=== PATIENT | male | born 1945 | race Caucasian/White ===

== ENCOUNTER → 2016-08-11 | Outpatient (CLI) | payer MEDICARE, MEDICAID ==
[~2016-08-11] MED LIST: ACTOS 15MG TAB15 MG PO; AMOXICILLIN 8751 TAB PO; ASPIRIN 81M81 MG/TA2 PO; ATIVAN 1MG T1 MG/TAB PO; COLACE 100100 MG/CAP PO; FLOMAX 0.40.4 MG/CAP PO; FOLIC ACID 11 MG/TA1 PO; HUMALOG PEN100 U/ML SC; HUMALOG100 U/ML SC; HYGROTON25 MG PO; INSLANT SC; INSULIN HUMA100 U/ML SQ; IRON TABLETS325 MG PO; LANTUS100 U/ML SC; LASIX 20MG TABL20 MG PO; LEVEMIR100 U/ML SQ; LIPITOR20 MG PO; LOPRESSOR100 MG PO; MUCINEX 60600 MG/TA1 PO; NORCO 325 MG-51 TAB PO; NORVASC 10MG10 MG PO; ONGLYZA2.5 MG PO; PEPCID 20MG TAB20 MG PO; PLAVIX 75MG TAB75 MG PO; PRINIVIL5 MG PO; RENA-VITE RX1 TAB PO; RENA-VITE1 TAB PO; RENAL MULTIVITA1 TAB PO; ROBITUSSIN COLD PO; TOPROL XL 25MG25 MG PO; TRADJENTA5 MG PO; TYLENOL 500MG500 MG PO; TYLENOL EXTRA500 M1 PO; VALTREX 50500 MG/TAB PO; VALTREX1 GM PO; VASOTEC 2.2.5 MG/TAB PO; VICTOZA6 MG/ML SC; VIRT-CAPS PO; VITAMIN B COMPL1 T16 PO; VITAMIN C500 MG PO; VITAMIN D1000 IU PO; VTAMINC250TA PO; VYTORIN 10 MG-11 TAB PO; XELODA500 MG PO; [UNRECOGNIZED DRUG - OTHER] OP
[2016-08-11 17:19] LABS: MEAN CELL VOLUME 87 fl (80.0-100.0); MEAN CORPUSCULAR HGB CONC 32 g/dl (33.0-37.0); MEAN PLATELET VOLUME 10.7 fl (7.4-10.4); PLATELET COUNT 179 K/mm3 (130-400); RED BLOOD COUNT 3.36 M/mm3 (4.20-5.60); REDCELL DISTRIBUTION WIDTH-CV 14.7 % (11.5-14.5); WHITE BLOOD COUNT 7.1 K/mm3 (4.8-10.8)
[2016-08-11 17:37] LABS: ADJUSTED CALCIUM 9.3 mg/dL (8.4-10.2); ALANINE AMINOTRANSFERASE 35 U/L (21-72); ALBUMIN 3.8 gm/dL (3.5-5.0); ALKALINE PHOSPHATASE 147 U/L (50-136); ANION GAP 11 mmol/L (7-16); BILIRUBIN,TOTAL 0.9 mg/dL (0.0-1.0); BLOOD UREA NITROGEN 39 mg/dL (9-20); CALCIUM 9.1 mg/dL (8.4-10.2); CARBON DIOXIDE 33 mmol/L (22-30); CHLORIDE 97 mmol/L (98-107); GLUCOSE 169 mg/dL (74-106); POTASSIUM 4.2 mmol/L (3.4-5.0); SODIUM 142 mmol/L (137-145); TOTAL PROTEIN 6.6 gm/dL (6.4-8.2)
[2016-08-11 17:44] LABS: ERYTHROCYTE SEDIMENTATION RATE 34 mm/hr (0-30)
[2016-08-11 17:45] LABS: HEMATOCRIT 29.2 % (42.0-52.0); HEMOGLOBIN 9.3 g/dl (13.5-18.0); MEAN CORPUSCULAR HEMOGLOBIN 28 pg (27.0-31.0)
[2016-08-11 17:48] LABS: B-TYPE NATRIURETIC PEPTIDE 14900 pg/mL (0-125)
[2016-08-11 17:54] LABS: CREATININE, serum 6.25 mg/dL (0.66-1.25); TROPONIN-I < 0.012 ng/mL (0.000-0.034)
== END ==
LOC: COL.LAB 16:42 → COL.RAD 16:42
PROVIDERS: Internal Medicine Interventional Cardiology
DX: R09.89 Other specified symptoms and signs involving the circulatory and respiratory systems (principal); R06.02 Shortness of breath; Z95.1 Presence of aortocoronary bypass graft

== ENCOUNTER 2016-09-19 21:09 | Emergency (ER) | payer MEDICARE, MEDICAID ==
[~2016-09-19] VITALS: Ht 167.6 cm; Wt 72.0 kg
[~2016-09-19 21:09] MED LIST changes: -LOPRESSOR100 MG PO; -VIRT-CAPS PO
[2016-09-19 21:15] VITALS: TEMP 98.2
[2016-09-19] MEDS ORDERED: PLAVIX 75MG TAB75 MG PO (22:28)
[2016-09-19] MEDS ORDERED: ASPIRIN 81M81 MG/TA2 PO (22:30)
[2016-09-19] MEDS ORDERED: VIRT-CAPS PO (22:30)
[2016-09-19] MEDS ORDERED: LOPRESSOR100 MG PO (22:31)
[2016-09-19 23:18] LABS: BASO # 0.1 (0.0-0.2); BASO % 1.1 % (0.0-2.0); EOS # 0.3 (0.0-0.7); EOS % 4.1 % (0-4.0); GRAN # 4.4 (1.4-6.5); GRAN % 62.6 % (42.2-75.2); LYMPH # 1.7 (1.2-3.4); LYMPH % 23.5 % (20.0-51.0); MEAN CELL VOLUME 89 fl (80.0-100.0); MEAN CORPUSCULAR HGB CONC 32 g/dl (33.0-37.0); MEAN PLATELET VOLUME 11.6 fl (7.4-10.4); MONO # 0.6 (0.1-0.6); MONO % 8.4 % (1.7-9.3); PLATELET COUNT 136 K/mm3 (130-400); RED BLOOD COUNT 3.09 M/mm3 (4.20-5.60); REDCELL DISTRIBUTION WIDTH-CV 15.3 % (11.5-14.5); WHITE BLOOD COUNT 7.1 K/mm3 (4.8-10.8)
[2016-09-19 23:28] LABS: HEMATOCRIT 27.6 % (42.0-52.0); HEMOGLOBIN 8.9 g/dl (13.5-18.0); MEAN CORPUSCULAR HEMOGLOBIN 29 pg (27.0-31.0)
[2016-09-19 23:30] LABS: ADJUSTED CALCIUM 8.6 mg/dL (8.4-10.2); ALBUMIN 3.7 gm/dL (3.5-5.0); BILIRUBIN,TOTAL 0.7 mg/dL (0.0-1.0); CALCIUM 8.4 mg/dL (8.4-10.2); TOTAL PROTEIN 6.2 gm/dL (6.4-8.2)
[2016-09-19 23:38] LABS: CREATININE, serum 10.5 mg/dL (0.66-1.25); POTASSIUM 6.9 mmol/L (3.4-5.0)
[2016-09-20 00:50] VITALS: BP 178/70; PULSE 45
== END 2016-09-20 01:00 | disposition short-term general hospital (02) ==
LOC: COL.ER 21:09
PROVIDERS: Emergency Medicine
DX: E11.22 Type 2 diabetes mellitus with diabetic chronic kidney disease (principal); N18.6 End stage renal disease; Z99.2 Dependence on renal dialysis; Z79.4 Long term (current) use of insulin; E87.5 Hyperkalemia; Z79.82 Long term (current) use of aspirin
CPT/HCPCS: J1815

== ENCOUNTER → 2016-09-19 | Outpatient (CLI) | payer MEDICARE, MEDICAID ==
[2016-09-19 19:13] LABS: MEAN CELL VOLUME 88 fl (80.0-100.0); MEAN CORPUSCULAR HGB CONC 32 g/dl (33.0-37.0); MEAN PLATELET VOLUME 11.3 fl (7.4-10.4); PLATELET COUNT 147 K/mm3 (130-400); RED BLOOD COUNT 3.19 M/mm3 (4.20-5.60); REDCELL DISTRIBUTION WIDTH-CV 15.2 % (11.5-14.5)
[2016-09-19 19:14] LABS: HEMATOCRIT 28.2 % (42.0-52.0); HEMOGLOBIN 9.1 g/dl (13.5-18.0); MEAN CORPUSCULAR HEMOGLOBIN 29 pg (27.0-31.0)
[2016-09-19 19:24] LABS: CALCIUM 8.7 mg/dL (8.4-10.2)
[2016-09-19 19:37] LABS: CREATININE, serum 10.14 mg/dL (0.66-1.25); POTASSIUM 7.3 mmol/L (3.4-5.0)
== END ==
LOC: COL.LAB 18:53
PROVIDERS: Internal Medicine Interventional Cardiology
DX: I70.213 Atherosclerosis of native arteries of extremities with intermittent claudication, bilateral legs (principal)

== ENCOUNTER 2017-05-12 10:49 | Emergency (ER) | payer MEDICARE ==
[~2017-05-12] VITALS: Ht 165.1 cm; Wt 70.5 kg
[~2017-05-12 10:49] MED LIST changes: +LOPRESSOR100 MG PO; +VIRT-CAPS PO
[2017-05-12 10:55] VITALS: TEMP 98.5
[2017-05-12 11:54] LABS: COLLECTION METHOD CLEAN CATCH
[2017-05-12 12:01] LABS: BASO # 0.1 (0.0-0.2); BASO % 0.8 % (0.0-2.0); EOS # 0.4 (0.0-0.7); EOS % 4.8 % (0-4.0); GRAN # 5.1 (1.4-6.5); LYMPH # 1.5 (1.2-3.4); LYMPH % 18.8 % (20.0-51.0); MEAN CELL VOLUME 87 fl (80.0-100.0); MEAN CORPUSCULAR HGB CONC 32 g/dl (33.0-37.0); MEAN PLATELET VOLUME 11.9 fl (7.4-10.4); MONO # 0.8 (0.1-0.6); MONO % 10.3 % (1.7-9.3); PLATELET COUNT 131 K/mm3 (130-400); RED BLOOD COUNT 3.89 M/mm3 (4.20-5.60); REDCELL DISTRIBUTION WIDTH-CV 15.6 % (11.5-14.5)
[2017-05-12 12:11] LABS: PH 8 (5-8); SQUAMOUS EPITHELIAL None Seen /hpf; URINE APPEARANCE Clear; URINE BACTERIA None Seen /hpf; URINE BILIRUBIN Negative (NEGATIVE); URINE BLOOD 1+ (NEGATIVE); URINE COLOR Yellow; URINE GLUCOSE 2+ (NEGATIVE); URINE KETONE Negative (NEGATIVE); URINE LEUKOCYTE ESTERASE Negative (NEGATIVE); URINE NITRATE Negative (NEGATIVE); URINE PROTEIN(semi-quant) 3+ (NEGATIVE); URINE UROBILINOGEN Negative (NEGATIVE)
[2017-05-12 12:12] LABS: HEMATOCRIT 33.8 % (42.0-52.0); HEMOGLOBIN 10.7 g/dl (13.5-18.0); MEAN CORPUSCULAR HEMOGLOBIN 28 pg (27.0-31.0)
[2017-05-12 12:17] LABS: ALBUMIN 4.4 gm/dL (3.5-5.0); BILIRUBIN,TOTAL 1.1 mg/dL (0.0-1.0); C-REACTIVE PROTEIN 0.6 mg/dL (0.0-0.9); TOTAL PROTEIN 7.3 gm/dL (6.4-8.2)
[2017-05-12 12:19] LABS: CREATININE, serum 4.23 mg/dL (0.66-1.25)
[2017-05-12 12:52] LABS: MAGNESIUM 2.2 mg/dL (1.6-2.3)
[2017-05-12] MEDS ORDERED: FLOMAX 0.40.4 MG/CAP PO (13:28)
[2017-05-12] MEDS ORDERED: BYSTOLIC20 MG PO (13:28)
[2017-05-12] MEDS ORDERED: IMDUR 30MG30 MG/TAB PO (13:29)
[2017-05-12] MEDS ORDERED: NORCO 325 MG-51 TAB PO (13:58)
[2017-05-12] MEDS ORDERED: CIPRO 500MG TA500 MG PO (13:58)
[2017-05-12 14:24] VITALS: BP 168/68; PULSE 52
== END 2017-05-12 14:26 | disposition home or self-care (01) ==
LOC: COL.ER 10:49
PROVIDERS: Emergency Medicine
DX: N45.1 Epididymitis (principal); E11.9 Type 2 diabetes mellitus without complications; I12.9 Hypertensive chronic kidney disease with stage 1 through stage 4 chronic kidney disease, or unspecified chronic kidney disease; N18.9 Chronic kidney disease, unspecified; Z95.5 Presence of coronary angioplasty implant and graft; Z87.19 Personal history of other diseases of the digestive system; Z85.038 Personal history of other malignant neoplasm of large intestine; Z79.4 Long term (current) use of insulin; Z79.82 Long term (current) use of aspirin
CPT/HCPCS: J1170; J2405

== ENCOUNTER 2017-06-20 09:57 | Day surgery (SDC) | payer MEDICARE, MEDICAID ==
[~2017-06-20] VITALS: Ht 162.6 cm; Wt 70.6 kg
[~2017-06-20 09:57] MED LIST changes: +BYSTOLIC20 MG PO; +CIPRO 500MG TA500 MG PO; +IMDUR 30MG30 MG/TAB PO
[2017-06-20] MEDS ORDERED: PHOS LO PO (10:46)
[2017-06-20 10:47] VITALS: BP 177/69; PULSE 47; TEMP 97.6
[2017-06-20] MEDS ORDERED: PROTONIX 40MG T40 MG PO (12:32)
[2017-06-20 12:50] VITALS: BP 144/59; PULSE 48; TEMP 97.6
[2017-06-20 13:05] VITALS: BP 156/62; PULSE 48
[2017-06-20 13:20] VITALS: BP 156/55; PULSE 47
== END 2017-06-20 13:45 | disposition home or self-care (01) ==
LOC: SDCO 09:57
DX: Z85.038 Personal history of other malignant neoplasm of large intestine (principal); Z80.0 Family history of malignant neoplasm of digestive organs; D12.5 Benign neoplasm of sigmoid colon; K57.30 Diverticulosis of large intestine without perforation or abscess without bleeding; D12.2 Benign neoplasm of ascending colon; K21.9 Gastro-esophageal reflux disease without esophagitis; K29.30 Chronic superficial gastritis without bleeding; R10.31 Right lower quadrant pain; I25.2 Old myocardial infarction; I13.10 Hypertensive heart and chronic kidney disease without heart failure, with stage 1 through stage 4 chronic kidney disease, or unspecified chronic kidney disease; E11.22 Type 2 diabetes mellitus with diabetic chronic kidney disease; N18.9 Chronic kidney disease, unspecified; I25.10 Atherosclerotic heart disease of native coronary artery without angina pectoris; Z95.1 Presence of aortocoronary bypass graft; Z79.4 Long term (current) use of insulin; Z99.2 Dependence on renal dialysis; E78.00 Pure hypercholesterolemia, unspecified
CPT/HCPCS: OP; J0171; J2704; J7030

== ENCOUNTER 2017-10-23 17:35 | Emergency (ER) | payer MEDICARE, MEDICAID ==
[~2017-10-23] VITALS: Ht 167.6 cm; Wt 72.0 kg
[~2017-10-23 17:35] MED LIST changes: +PHOS LO PO; +PROTONIX 40MG T40 MG PO
[2017-10-23 17:46] VITALS: TEMP 99.1
[2017-10-23 18:39] LABS: BASO # 0.1 (0.0-0.2); EOS # 0.3 (0.0-0.7); EOS % 4.7 % (0-4.0); GRAN # 3.5 (1.4-6.5); GRAN % 60.2 % (42.2-75.2); LYMPH # 1.4 (1.2-3.4); LYMPH % 23.5 % (20.0-51.0); MEAN CELL VOLUME 89 fl (80.0-100.0); MEAN CORPUSCULAR HGB CONC 34 g/dl (33.0-37.0); MEAN PLATELET VOLUME 11.4 fl (7.4-10.4); MONO # 0.6 (0.1-0.6); MONO % 10.4 % (1.7-9.3); PLATELET COUNT 140 K/mm3 (130-400); RED BLOOD COUNT 3.05 M/mm3 (4.20-5.60); REDCELL DISTRIBUTION WIDTH-CV 14.6 % (11.5-14.5)
[2017-10-23 18:47] LABS: HEMOGLOBIN 9.1 g/dl (13.5-18.0); MEAN CORPUSCULAR HEMOGLOBIN 30 pg (27.0-31.0)
[2017-10-23 19:06] LABS: ALBUMIN 3.6 gm/dL (3.5-5.0); BILIRUBIN,TOTAL 0.8 mg/dL (0.0-1.0); POTASSIUM 4.6 mmol/L (3.4-5.0); TOTAL PROTEIN 6.5 gm/dL (6.4-8.2)
[2017-10-23 19:18] LABS: TROPONIN-I 0.016 ng/mL (0.000-0.034)
[2017-10-23 19:19] LABS: CREATININE, serum 5.31 mg/dL (0.66-1.25)
[2017-10-23 22:06] VITALS: BP 122/53; PULSE 52
== END 2017-10-23 22:17 | disposition home or self-care (01) ==
LOC: COL.ER 17:35
PROVIDERS: Emergency Medicine
DX: R42 Dizziness and giddiness (principal); R06.02 Shortness of breath; E86.9 Volume depletion, unspecified; I25.10 Atherosclerotic heart disease of native coronary artery without angina pectoris; I12.0 Hypertensive chronic kidney disease with stage 5 chronic kidney disease or end stage renal disease; E11.22 Type 2 diabetes mellitus with diabetic chronic kidney disease; N18.6 End stage renal disease; E78.5 Hyperlipidemia, unspecified; Z99.2 Dependence on renal dialysis; Z95.1 Presence of aortocoronary bypass graft; Z79.82 Long term (current) use of aspirin; Z79.4 Long term (current) use of insulin
CPT/HCPCS: J7050

== ENCOUNTER → 2018-04-04 | Outpatient (CLI) | payer MEDICARE, MEDICAID | LOC: COL.RAD 08:00 | DX: E04.1 Nontoxic single thyroid nodule (principal); Z85.038 Personal history of other malignant neoplasm of large intestine ==

== ENCOUNTER → 2018-04-17 | Outpatient (CLI) | payer MEDICARE, MEDICAID ==
[~2018-04-17] VITALS: Ht 165.1 cm; Wt 72.6 kg
[~2018-04-17] MED LIST changes: +PLETAL50 MG PO
[2018-04-17 08:33] VITALS: BP 173/74; PULSE 58
[2018-04-17 09:40] VITALS: BP 184/79; PULSE 57
--- NOTE | 2018-04-17 09:49 | NUR ---
copy of discharge instructions given to pt. Daughter previously read the instructions to her father and he verbalized understanding.
--- NOTE | 2018-04-17 09:53 | NUR ---
pt reports pain at 5/10, encouraged pt to take tylenol on returning home.
--- NOTE | 2018-04-17 09:57 | NUR ---
Pt out to car per ambulation. No change in pain. Family with pt. Bandaid to site clean dry and intact.
== END ==
LOC: COL.RAD 08:15
DX: C18.5 Malignant neoplasm of splenic flexure (principal); E04.1 Nontoxic single thyroid nodule

== ENCOUNTER → 2018-08-28 | Outpatient (CLI) | payer OTHER | LOC: COL.RAD 09:00 → COL.VAS 10:35 → COL.RAD 09-04 12:15 | DX: Z01.818 Encounter for other preprocedural examination (principal); N18.6 End stage renal disease; I70.203 Unspecified atherosclerosis of native arteries of extremities, bilateral legs ==

== ENCOUNTER → 2018-09-04 | Outpatient (CLI) | payer OTHER | LOC: COL.RAD 12:07 | DX: Z01.818 Encounter for other preprocedural examination (principal); N18.6 End stage renal disease; I65.23 Occlusion and stenosis of bilateral carotid arteries; I70.209 Unspecified atherosclerosis of native arteries of extremities, unspecified extremity ==

== ENCOUNTER → 2018-09-25 | Outpatient (CLI) | payer MEDICARE, MEDICAID | LOC: COL.RAD 09:34 | DX: N43.2 Other hydrocele (principal); N50.89 Other specified disorders of the male genital organs ==

== ENCOUNTER → 2019-01-17 | Outpatient (CLI) | payer MEDICARE, MEDICAID | LOC: COL.RAD 12:30 | DX: Z01.818 Encounter for other preprocedural examination (principal); N18.6 End stage renal disease; Z95.1 Presence of aortocoronary bypass graft ==

== ENCOUNTER → 2019-05-08 | Outpatient (CLI) | payer MEDICARE, MEDICAID ==
[2019-05-08 11:40] LABS: MEAN CELL VOLUME 90 fl (80.0-100.0); MEAN CORPUSCULAR HEMOGLOBIN 30 pg (27.0-31.0); MEAN CORPUSCULAR HGB CONC 33 g/dl (33.0-37.0); MEAN PLATELET VOLUME 10.8 fl (7.4-10.4); PLATELET COUNT 206 K/mm3 (130-400); RED BLOOD COUNT 3.68 M/mm3 (4.20-5.60); REDCELL DISTRIBUTION WIDTH-CV 12.9 % (11.5-14.5)
[2019-05-08 11:41] LABS: HEMATOCRIT 33.2 % (42.0-52.0)
[2019-05-08 11:48] LABS: CALCIUM 8.8 mg/dL (8.4-10.2); CREATININE, serum 4.09 (0.66-1.25); POTASSIUM 4.1 mmol/L (3.4-5.0)
== END ==
LOC: COL.LAB 10:32
PROVIDERS: Registered Nurse
DX: Z01.89 Encounter for other specified special examinations (principal)

== ENCOUNTER → 2019-06-11 | Outpatient (CLI) | payer MEDICARE, MEDICAID | LOC: COL.RAD 10:12 | DX: Z01.818 Encounter for other preprocedural examination (principal); N18.6 End stage renal disease; I73.9 Peripheral vascular disease, unspecified; K80.20 Calculus of gallbladder without cholecystitis without obstruction; N32.89 Other specified disorders of bladder; N40.0 Benign prostatic hyperplasia without lower urinary tract symptoms ==

== ENCOUNTER → 2020-03-23 | Outpatient (CLI) | payer MEDICARE | LOC: ZCOL.LAB 17:57 | DX: Z01.812 Encounter for preprocedural laboratory examination (principal); B34.9 Viral infection, unspecified; Z20.828 Contact with and (suspected) exposure to other viral communicable diseases ==

== ENCOUNTER → 2020-06-18 | Outpatient (CLI) | payer MEDICARE | LOC: COL.RAD | DX: R91.1 Solitary pulmonary nodule (principal); N18.6 End stage renal disease; Z01.812 Encounter for preprocedural laboratory examination ==

== ENCOUNTER → 2020-10-13 | Outpatient (CLI) | payer MEDICARE, MEDICAID | LOC: COL.LAB 12:04 → COL.RAD 12:20 | DX: R07.9 Chest pain, unspecified (principal); Z95.1 Presence of aortocoronary bypass graft ==

== ENCOUNTER 2021-03-22 13:03 | Day surgery (SDC) | payer MEDICARE, MEDICAID ==
[~2021-03-22] VITALS: Ht 165.2 cm; Wt 74.0 kg
[2021-03-22] VITALS (9 sets, daily range): BP systolic 155–172; BP diastolic 61–78; PULSE 64–77; TEMP 97.7
[2021-03-22 14:14] LABS: HEMATOCRIT 31.2 % (42.0-52.0); HEMOGLOBIN 10.4 g/dl (13.5-18.0); MEAN CELL VOLUME 90 fl (80.0-100.0); MEAN CORPUSCULAR HEMOGLOBIN 30 pg (27.0-31.0); MEAN CORPUSCULAR HGB CONC 33 g/dl (33.0-37.0); MEAN PLATELET VOLUME 10.3 fl (7.4-10.4); PLATELET COUNT 190 K/mm3 (130-400); RED BLOOD COUNT 3.47 M/mm3 (4.20-5.60)
[2021-03-22 14:18] LABS: INR 1.1 (0.8-3.0); PROTHROMBIN TIME 12.1 SECONDS (9.7-12.8)
[2021-03-22 14:20] LABS: PARTIAL THROMBOPLASTIN TIME 29.8 SECONDS (26.0-37.0)
[2021-03-22 14:31] LABS: CALCIUM 10.1 mg/dL (8.4-10.2); CREATININE, serum 5.88 mg/dL (0.72-1.25); POTASSIUM 4.7 mmol/L (3.5-4.5)
[2021-03-22] MEDS ORDERED: SYNTHROID0.075 MG/T PO (14:32)
--- NOTE | 2021-03-22 15:18 | NUR ---
SEE MERGE FOR ALL MEDICATION ADMINISTRATION TIMES/DOSAGES AND INTRA/POST SEDATION ASSESSMENTS.
[2021-03-22] MEDS ORDERED: ASPIRIN 81M81 MG/TA2 PO (16:44)
[2021-03-22] MEDS ORDERED: RANEXA 500MG T500 MG PO (16:44)
--- NOTE | 2021-03-22 16:45 | NUR ---
pt returned from seed laboratory assistant via bed, daughter with pt. pt is sleepy, but opens eyes when spoke to. spoke with daughter on precautions post of and keeping right leg straight. call light in reach.
--- NOTE | 2021-03-22 17:00 | NUR ---
Dr Lemons into see pt and daughter
--- NOTE | 2021-03-22 17:15 | NUR ---
con't same, daughter help with meal order, no c/o
--- NOTE | 2021-03-22 18:32 | NUR ---
pt eats supper without problems, talked with daughter on discharge instructions for father, reviewed activity for moderate sedation and for groin care and activity for her to tell her father. also she will call for 1 week appt at office and states told her Leonid will be calling them for next followup up. They will coal picker 2 new Rx at [facility], discussed handouts with daughter, also coverered what to do if bleeding occurs at site with verbal understanding from daughter.
--- NOTE | 2021-03-22 19:00 | NUR ---
pt sat on side of bed, no bleeding or swelling at site, walked in room with steady gait, site remains the same. IV d'cd intact with coban on. pt up and dressed self. Pt discharged with instructions for him and daughter via w/c to car
== END 2021-03-22 19:05 | disposition home or self-care (01) ==
LOC: COL.CAR 13:03
PROVIDERS: Internal Medicine Cardiovascular Disease
DX: I25.10 Atherosclerotic heart disease of native coronary artery without angina pectoris (principal); I25.2 Old myocardial infarction; E11.22 Type 2 diabetes mellitus with diabetic chronic kidney disease; I12.0 Hypertensive chronic kidney disease with stage 5 chronic kidney disease or end stage renal disease; N18.6 End stage renal disease; Z99.2 Dependence on renal dialysis; E78.5 Hyperlipidemia, unspecified; I07.1 Rheumatic tricuspid insufficiency; Z95.1 Presence of aortocoronary bypass graft; Z79.4 Long term (current) use of insulin; Z79.899 Other long term (current) drug therapy
CPT/HCPCS: C1760; C1769; C1887; C1894; J1644; J2250; J3010; J7030; Q9967

== ENCOUNTER 2021-04-06 08:33 | Emergency (ER) | payer MEDICARE, MEDICAID ==
[~2021-04-06] VITALS: Ht 162.6 cm; Wt 74.1 kg
[~2021-04-06 08:33] MED LIST changes: +RANEXA 500MG T500 MG PO; +SYNTHROID0.075 MG/T PO
[2021-04-06 08:40] VITALS: TEMP 98.6
[2021-04-06 09:02] LABS: BASO # 0.1 K/mm3 (0.0-0.2); BASO % 1.5 % (0.0-2.0); EOS % 10.9 % (0.0-4.0); GRAN # 5.2 K/mm3 (1.4-6.5); GRAN % 57.2 % (42.2-75.2); HEMOGLOBIN 10.8 g/dl (13.5-18.0); LYMPH # 1.9 K/mm3 (1.2-3.4); LYMPH % 20.7 % (20.0-51.0); MEAN CELL VOLUME 90 fl (80.0-100.0); MEAN CORPUSCULAR HEMOGLOBIN 30 pg (27-31); MEAN CORPUSCULAR HGB CONC 33 g/dl (33.0-37.0); MEAN PLATELET VOLUME 10.1 fl (7.4-10.4); MONO # 0.9 K/mm3 (0.1-0.6); MONO % 9.5 % (1.7-9.3); PLATELET COUNT 296 K/mm3 (130-400); RED BLOOD COUNT 3.66 M/mm3 (4.20-5.60); REDCELL DISTRIBUTION WIDTH-CV 14.1 % (11.5-14.5)
[2021-04-06 09:03] LABS: HEMATOCRIT 32.8 % (42.0-52.0)
[2021-04-06 09:08] LABS: INR 1.1 (0.8-3.0); PROTHROMBIN TIME 12.6 SECONDS (9.7-12.8)
[2021-04-06 09:11] LABS: PARTIAL THROMBOPLASTIN TIME 30.8 SECONDS (26.0-37.0)
[2021-04-06 09:19] LABS: ALBUMIN 3.9 gm/dL (3.4-4.8); BILIRUBIN,TOTAL 0.9 mg/dL (0.2-1.2); C-REACTIVE PROTEIN 1.53 mg/dL (0.00-0.50); CALCIUM 9.3 mg/dL (8.4-10.2); CREATININE, serum 6.69 mg/dL (0.72-1.25); MAGNESIUM 2.1 mg/dL (1.6-2.6); POTASSIUM 5.3 mmol/L (3.5-4.5); TOTAL PROTEIN 7.4 gm/dL (6.2-8.1)
[2021-04-06 09:30] LABS: TROPONIN-I 0.045 ng/mL (0.00-0.033)
[2021-04-06] MEDS ORDERED: ZOFRAN ODT4 MG PO (10:21)
[2021-04-06] MEDS ORDERED: NORCO 325 MG-51 TAB PO (10:21)
[2021-04-06 10:27] VITALS: BP 176/72; PULSE 65
== END 2021-04-06 10:36 | disposition home or self-care (01) ==
LOC: COL.ER 08:33
PROVIDERS: Emergency Medicine
DX: G43.909 Migraine, unspecified, not intractable, without status migrainosus (principal); I12.0 Hypertensive chronic kidney disease with stage 5 chronic kidney disease or end stage renal disease; E11.22 Type 2 diabetes mellitus with diabetic chronic kidney disease; N18.6 End stage renal disease; I25.10 Atherosclerotic heart disease of native coronary artery without angina pectoris; E78.00 Pure hypercholesterolemia, unspecified; Z99.2 Dependence on renal dialysis; Z79.82 Long term (current) use of aspirin; Z79.899 Other long term (current) drug therapy; Z79.4 Long term (current) use of insulin; Z95.9 Presence of cardiac and vascular implant and graft, unspecified
CPT/HCPCS: J2270; J2405; J2550

== ENCOUNTER 2021-04-07 16:11 | Emergency (ER) | payer MEDICARE, MEDICAID ==
[~2021-04-07] VITALS: Ht 162.6 cm; Wt 74.1 kg
[~2021-04-07 16:11] MED LIST changes: +ZOFRAN ODT4 MG PO
[2021-04-07 16:21] VITALS: TEMP 97.8
[2021-04-07 17:15] VITALS: BP 170/63; PULSE 63
== END 2021-04-07 17:30 | disposition home or self-care (01) ==
LOC: COL.ER 16:11
DX: R11.2 Nausea with vomiting, unspecified (principal); N18.6 End stage renal disease; G43.909 Migraine, unspecified, not intractable, without status migrainosus; Z99.2 Dependence on renal dialysis; Z85.038 Personal history of other malignant neoplasm of large intestine; Z79.1 Long term (current) use of non-steroidal anti-inflammatories (NSAID)

== ENCOUNTER 2021-04-18 11:29 | Emergency (ER) | payer MEDICARE, MEDICAID ==
[~2021-04-18] VITALS: Ht 170.2 cm; Wt 73.0 kg
[2021-04-18 11:53] VITALS: TEMP 97.2
[2021-04-18 12:11] LABS: BASO # 0.1 K/mm3 (0.0-0.2); BASO % 1.3 % (0.0-2.0); EOS # 0.8 K/mm3 (0.0-0.7); EOS % 8.6 % (0.0-4.0); GRAN # 6.3 K/mm3 (1.4-6.5); GRAN % 64.7 % (42.2-75.2); HEMOGLOBIN 10.6 g/dl (13.5-18.0); LYMPH # 1.6 K/mm3 (1.2-3.4); LYMPH % 16.6 % (20.0-51.0); MEAN CELL VOLUME 93 fl (80.0-100.0); MEAN CORPUSCULAR HEMOGLOBIN 30 pg (27-31); MEAN CORPUSCULAR HGB CONC 33 g/dl (33.0-37.0); MEAN PLATELET VOLUME 10.1 fl (7.4-10.4); MONO # 0.8 K/mm3 (0.1-0.6); MONO % 8.4 % (1.7-9.3); PLATELET COUNT 269 K/mm3 (130-400); RED BLOOD COUNT 3.51 M/mm3 (4.20-5.60); REDCELL DISTRIBUTION WIDTH-CV 14.8 % (11.5-14.5)
[2021-04-18 12:25] LABS: ALBUMIN 3.8 gm/dL (3.4-4.8); BILIRUBIN,TOTAL 1.1 mg/dL (0.2-1.2); CALCIUM 9.6 mg/dL (8.4-10.2); CREATININE, serum 8.14 mg/dL (0.72-1.25); TOTAL PROTEIN 6.8 gm/dL (6.2-8.1)
[2021-04-18 12:26] LABS: POTASSIUM 6.6 mmol/L (3.5-4.5)
[2021-04-18 12:31] LABS: HEMATOCRIT 32.6 % (42.0-52.0)
[2021-04-18 12:40] LABS: TROPONIN-I 0.041 ng/mL (0.00-0.033)
[2021-04-18 13:24] LABS: INR 1.1 (0.8-3.0)
[2021-04-18 14:36] VITALS: BP 160/59; PULSE 64
== END 2021-04-18 14:36 | disposition short-term general hospital (02) ==
LOC: COL.ER 11:29
PROVIDERS: Emergency Medicine
DX: I10 Essential (primary) hypertension (principal); R79.89 Other specified abnormal findings of blood chemistry; R94.31 Abnormal electrocardiogram [ECG] [EKG]; I25.10 Atherosclerotic heart disease of native coronary artery without angina pectoris; I12.0 Hypertensive chronic kidney disease with stage 5 chronic kidney disease or end stage renal disease; E11.22 Type 2 diabetes mellitus with diabetic chronic kidney disease; N18.6 End stage renal disease; E78.00 Pure hypercholesterolemia, unspecified; Z99.2 Dependence on renal dialysis; Z79.82 Long term (current) use of aspirin; Z79.4 Long term (current) use of insulin; Z79.899 Other long term (current) drug therapy
CPT/HCPCS: J0610; J1644; J1815; J2270; J2405

== ENCOUNTER → 2021-04-22 | Outpatient (CLI) | payer MEDICARE, MEDICAID | LOC: COL.RAD 13:56 | DX: I77.1 Stricture of artery (principal); I70.0 Atherosclerosis of aorta; I51.7 Cardiomegaly | CPT/HCPCS: Q9967 ==

== ENCOUNTER → 2021-05-07 | Outpatient (CLI) | payer MEDICARE, MEDICAID | LOC: COL.RAD 14:45 | DX: Z01.818 Encounter for other preprocedural examination (principal); N18.6 End stage renal disease; N26.1 Atrophy of kidney (terminal); N32.89 Other specified disorders of bladder; K80.20 Calculus of gallbladder without cholecystitis without obstruction; I25.10 Atherosclerotic heart disease of native coronary artery without angina pectoris; Z94.0 Kidney transplant status; Z99.2 Dependence on renal dialysis ==

== ENCOUNTER 2021-06-07 19:11 | Emergency (ER) | payer MEDICARE, MEDICAID ==
[~2021-06-07] VITALS: Ht 167.6 cm; Wt 73.0 kg
[2021-06-07 19:19] VITALS: TEMP 98.3
[2021-06-07 19:55] LABS: BASO # 0.1 K/mm3 (0.0-0.2); BASO % 1.2 % (0.0-2.0); EOS # 0.5 K/mm3 (0.0-0.7); EOS % 6.5 % (0.0-4.0); GRAN % 66.7 % (42.2-75.2); LYMPH # 1.1 K/mm3 (1.2-3.4); LYMPH % 14.8 % (20.0-51.0); MEAN CELL VOLUME 97 fl (80.0-100.0); MEAN CORPUSCULAR HGB CONC 32 g/dl (33.0-37.0); MEAN PLATELET VOLUME 10.4 fl (7.4-10.4); MONO # 0.8 K/mm3 (0.1-0.6); MONO % 10.5 % (1.7-9.3); PLATELET COUNT 213 K/mm3 (130-400); RED BLOOD COUNT 2.85 M/mm3 (4.20-5.60); REDCELL DISTRIBUTION WIDTH-CV 15.4 % (11.5-14.5)
[2021-06-07 19:56] LABS: HEMATOCRIT 27.6 % (42.0-52.0); HEMOGLOBIN 8.9 g/dl (13.5-18.0); MEAN CORPUSCULAR HEMOGLOBIN 31 pg (27-31)
[2021-06-07 20:23] LABS: ALBUMIN 3.5 gm/dL (3.4-4.8); BILIRUBIN,TOTAL 0.8 mg/dL (0.2-1.2); CALCIUM 9.3 mg/dL (8.4-10.2); CREATININE, serum 5.29 mg/dL (0.72-1.25); POTASSIUM 5.2 mmol/L (3.5-4.5); TOTAL PROTEIN 5.9 gm/dL (6.2-8.1)
[2021-06-07] MEDS ORDERED: PEPCID 20MG TAB20 MG PO (22:05)
[2021-06-07 22:21] VITALS: BP 147/67; PULSE 57
== END 2021-06-07 22:21 | disposition home or self-care (01) ==
LOC: COL.ER 19:11
PROVIDERS: Emergency Medicine
DX: K80.20 Calculus of gallbladder without cholecystitis without obstruction (principal); E11.22 Type 2 diabetes mellitus with diabetic chronic kidney disease; I12.0 Hypertensive chronic kidney disease with stage 5 chronic kidney disease or end stage renal disease; N18.6 End stage renal disease; Z99.2 Dependence on renal dialysis
CPT/HCPCS: J2405; J3010

== ENCOUNTER → 2021-09-28 | Outpatient (CLI) | payer MEDICARE, MEDICAID | LOC: COL.RAD 12:48 | DX: M47.812 Spondylosis without myelopathy or radiculopathy, cervical region (principal); M40.292 Other kyphosis, cervical region ==

== ENCOUNTER 2021-10-22 14:50 | Emergency (ER) | payer MEDICARE, MEDICAID ==
[~2021-10-22] VITALS: Ht 167.6 cm; Wt 73.0 kg
[2021-10-22 15:17] VITALS: TEMP 98.4
[2021-10-22 17:47] VITALS: BP 128/70; PULSE 50
== END 2021-10-22 17:48 | disposition home or self-care (01) ==
LOC: COL.ER 14:50
DX: G43.909 Migraine, unspecified, not intractable, without status migrainosus (principal); I12.0 Hypertensive chronic kidney disease with stage 5 chronic kidney disease or end stage renal disease; E11.22 Type 2 diabetes mellitus with diabetic chronic kidney disease; N18.6 End stage renal disease; Z99.2 Dependence on renal dialysis
CPT/HCPCS: J2250; J2270; J2405

== ENCOUNTER 2021-11-03 12:08 | Emergency (ER) | payer MEDICARE, MEDICAID ==
[~2021-11-03] VITALS: Ht 167.6 cm; Wt 72.0 kg
[2021-11-03 12:14] VITALS: TEMP 98.8
[2021-11-03 13:02] VITALS: BP 186/77; PULSE 67
== END 2021-11-03 13:13 | disposition home or self-care (01) ==
LOC: COL.ER 12:08
DX: I12.0 Hypertensive chronic kidney disease with stage 5 chronic kidney disease or end stage renal disease (principal); E11.22 Type 2 diabetes mellitus with diabetic chronic kidney disease; N18.6 End stage renal disease; Z99.2 Dependence on renal dialysis; Z95.5 Presence of coronary angioplasty implant and graft
CPT/HCPCS: J0780; J2270

== ENCOUNTER 2021-11-28 17:16 | Emergency (ER) | payer MEDICARE, MEDICAID ==
[~2021-11-28] VITALS: Ht 167.6 cm; Wt 72.0 kg
[2021-11-28 17:42] VITALS: TEMP 98.6
[2021-11-28 18:32] LABS: BASO # 0.1 K/mm3 (0.0-0.2); BASO % 1.8 % (0.0-2.0); EOS # 0.4 K/mm3 (0.0-0.7); EOS % 5.3 % (0.0-4.0); GRAN # 5.9 K/mm3 (1.4-6.5); GRAN % 74.5 % (42.2-75.2); HEMATOCRIT 39.2 % (42.0-52.0); HEMOGLOBIN 12.4 g/dl (13.5-18.0); LYMPH # 0.8 K/mm3 (1.2-3.4); LYMPH % 10.5 % (20.0-51.0); MEAN CELL VOLUME 95 fl (80.0-100.0); MEAN CORPUSCULAR HEMOGLOBIN 30 pg (27-31); MEAN CORPUSCULAR HGB CONC 32 g/dl (33.0-37.0); MEAN PLATELET VOLUME 10.9 fl (7.4-10.4); MONO # 0.6 K/mm3 (0.1-0.6); MONO % 7.6 % (1.7-9.3); PLATELET COUNT 202 K/mm3 (130-400); RED BLOOD COUNT 4.15 M/mm3 (4.20-5.60); REDCELL DISTRIBUTION WIDTH-CV 15.4 % (11.5-14.5)
[2021-11-28 18:52] LABS: ALBUMIN 3.8 gm/dL (3.4-4.8); CALCIUM 9.3 mg/dL (8.4-10.2); CREATININE, serum 7.31 mg/dL (0.72-1.25); POTASSIUM 4.5 mmol/L (3.5-4.5); TOTAL PROTEIN 6.8 gm/dL (6.2-8.1)
[2021-11-28 19:05] LABS: TROPONIN-I 0.037 ng/mL (0.00-0.033)
[2021-11-28 22:35] VITALS: BP 202/85; PULSE 52
== END 2021-11-28 22:35 | disposition short-term general hospital (02) ==
LOC: COL.ER 17:16
PROVIDERS: Physician Assistant
DX: E11.22 Type 2 diabetes mellitus with diabetic chronic kidney disease (principal); I12.9 Hypertensive chronic kidney disease with stage 1 through stage 4 chronic kidney disease, or unspecified chronic kidney disease; N18.9 Chronic kidney disease, unspecified; R13.10 Dysphagia, unspecified; E11.65 Type 2 diabetes mellitus with hyperglycemia; E80.7 Disorder of bilirubin metabolism, unspecified; Z90.49 Acquired absence of other specified parts of digestive tract; Z85.038 Personal history of other malignant neoplasm of large intestine; Z99.2 Dependence on renal dialysis
CPT/HCPCS: C9113; J0360; J2060; J2405

== ENCOUNTER 2021-12-08 16:52 | Emergency (ER) | payer MEDICARE, MEDICAID ==
[~2021-12-08] VITALS: Ht 167.6 cm; Wt 66.4 kg
[2021-12-08 17:00] VITALS: TEMP 97.9
[2021-12-08 17:25] LABS: BASO # 0.1 K/mm3 (0.0-0.2); BASO % 1.2 % (0.0-2.0); EOS # 0.6 K/mm3 (0.0-0.7); EOS % 7.4 % (0.0-4.0); GRAN # 5.2 K/mm3 (1.4-6.5); GRAN % 68.2 % (42.2-75.2); HEMOGLOBIN 11.7 g/dl (13.5-18.0); LYMPH % 12.8 % (20.0-51.0); MEAN CELL VOLUME 90 fl (80.0-100.0); MEAN CORPUSCULAR HEMOGLOBIN 30 pg (27-31); MEAN CORPUSCULAR HGB CONC 33 g/dl (33.0-37.0); MEAN PLATELET VOLUME 10.3 fl (7.4-10.4); MONO # 0.8 K/mm3 (0.1-0.6); PLATELET COUNT 219 K/mm3 (130-400); RED BLOOD COUNT 3.95 M/mm3 (4.20-5.60); REDCELL DISTRIBUTION WIDTH-CV 15.1 % (11.5-14.5)
[2021-12-08 17:26] LABS: HEMATOCRIT 35.6 % (42.0-52.0)
[2021-12-08 17:44] LABS: ALBUMIN 3.4 gm/dL (3.4-4.8); BILIRUBIN,TOTAL 1.3 mg/dL (0.2-1.2); C-REACTIVE PROTEIN 0.64 mg/dL (0.00-0.50); CALCIUM 8.9 mg/dL (8.4-10.2); CREATININE, serum 4.42 mg/dL (0.72-1.25); MAGNESIUM 1.9 mg/dL (1.6-2.6); POTASSIUM 3.8 mmol/L (3.5-4.5); TOTAL PROTEIN 6.3 gm/dL (6.2-8.1)
[2021-12-08 20:35] VITALS: BP 185/74; PULSE 54
== END 2021-12-08 20:35 | disposition home or self-care (01) ==
LOC: COL.ER 16:52
PROVIDERS: Emergency Medicine
DX: I12.0 Hypertensive chronic kidney disease with stage 5 chronic kidney disease or end stage renal disease (principal); E11.22 Type 2 diabetes mellitus with diabetic chronic kidney disease; N18.6 End stage renal disease; Z99.2 Dependence on renal dialysis
CPT/HCPCS: J0360; J2405

== ENCOUNTER → 2022-01-27 | Outpatient (CLI) | payer MEDICARE, MEDICAID ==
[~2022-01-27] MED LIST changes: +APRESOLINE 25MG25 MG PO; +BRILINTA90 MG PO; +BYSTOLIC10 MG PO; +MINOXIDIL 2.5 PO; +ZOLOFT 50MG50 MG PO
== END ==
LOC: COL.RAD 13:25
DX: M19.021 Primary osteoarthritis, right elbow (principal); I70.208 Unspecified atherosclerosis of native arteries of extremities, other extremity; Z95.1 Presence of aortocoronary bypass graft; Z98.890 Other specified postprocedural states

== ENCOUNTER → 2022-06-08 | Outpatient (CLI) | payer MEDICARE, MEDICAID | LOC: COL.RAD 14:44 | DX: J90 Pleural effusion, not elsewhere classified (principal); R05.1 Acute cough ==

== ENCOUNTER → 2022-08-18 | Outpatient (CLI) | payer MEDICARE, MEDICAID ==
[~2022-08-18] VITALS: Ht 167.6 cm; Wt 65.0 kg
[~2022-08-18] MED LIST changes: +IMDUR 60MG60 MG/TAB PO; +LASIX 40MG TABL40 MG PO; +LEVOXYL0.1 MG PO
[2022-08-18 09:47] VITALS: BP 173/71; PULSE 46; TEMP 97.6
[2022-08-18 11:05] VITALS: BP 154/64; PULSE 42
== END ==
LOC: COL.RAD 09:44
DX: J90 Pleural effusion, not elsewhere classified (principal)
CPT/HCPCS: 19804

== ENCOUNTER 2023-01-12 14:06 | Emergency (ER) | payer MEDICARE, MEDICAID ==
[~2023-01-12] VITALS: Ht 157.5 cm; Wt 60.0 kg
[2023-01-12 14:23] VITALS: TEMP 98.1
[2023-01-12 14:35] LABS: BASO # 0.1 K/mm3 (0.0-0.2); BASO % 1.2 % (0.0-2.0); EOS # 0.5 K/mm3 (0.0-0.7); EOS % 6.4 % (0.0-4.0); GRAN # 6.6 K/mm3 (1.4-6.5); HEMATOCRIT 33.9 % (42.0-52.0); HEMOGLOBIN 10.7 g/dl (13.5-18.0); LYMPH # 0.6 K/mm3 (1.2-3.4); LYMPH % 6.7 % (20.0-51.0); MEAN CELL VOLUME 83 fl (80.0-100.0); MEAN CORPUSCULAR HEMOGLOBIN 26 pg (27-31); MEAN CORPUSCULAR HGB CONC 32 g/dl (33.0-37.0); MEAN PLATELET VOLUME 10.2 fl (7.4-10.4); MONO # 0.6 K/mm3 (0.1-0.6); MONO % 7.5 % (1.7-9.3); PLATELET COUNT 276 K/mm3 (130-400); RED BLOOD COUNT 4.09 M/mm3 (4.20-5.60); REDCELL DISTRIBUTION WIDTH-CV 16.7 % (11.5-14.5)
[2023-01-12 14:52] LABS: ALBUMIN 3.4 gm/dL (3.4-4.8); BILIRUBIN,TOTAL 1.9 mg/dL (0.2-1.2); CALCIUM 9.9 mg/dL (8.4-10.2); CREATININE, serum 4.63 mg/dL (0.72-1.25); TOTAL PROTEIN 8.1 gm/dL (6.2-8.1)
[2023-01-12 14:58] LABS: TROPONIN-I 0.032 ng/mL (0.00-0.033)
[2023-01-12 16:08] LABS: INR 1.3 (0.8-3.0); PROTHROMBIN TIME 13.7 SECONDS (9.7-12.8)
[2023-01-12 20:45] VITALS: BP 142/56; PULSE 43
== END 2023-01-12 20:45 | disposition home or self-care (01) ==
LOC: COL.ER 14:06
PROVIDERS: Emergency Medicine
DX: J90 Pleural effusion, not elsewhere classified (principal); R79.89 Other specified abnormal findings of blood chemistry; N18.6 End stage renal disease; Z99.2 Dependence on renal dialysis

== ENCOUNTER 2023-08-01 10:18 | Day surgery (SDC) | payer MEDICARE, MEDICAID ==
[~2023-08-01] VITALS: Ht 162.6 cm; Wt 53.3 kg
[~2023-08-01 10:18] MED LIST changes: +AMOXICILLIN/CLA1 TA1; -LASIX 40MG TABL40 MG PO; -LEVOXYL0.1 MG PO; +LIPITOR 80MG80 MG PO; +NORVASC 5MG5 MG/TAB PO; +Ondansetron 4 MG/2 ML VIAL IV PRN; +SYNTHROID0.1 MG/TAB PO; +ZOLOFT 100MG100 MG PO; -ZOLOFT 50MG50 MG PO
[2023-08-01] MEDS ORDERED: Lidocaine PF 2% (20 MG/ML) 5 ML VIAL ONE (11:49)
[2023-08-01] MEDS ORDERED: NS 1,000 ML IV SCH (12:00)
[2023-08-01] MEDS ORDERED: GLUCOTROL XL2.5 MG PO (12:08)
[2023-08-01 12:58] VITALS: BP 136/66; PULSE 50; TEMP 96.6
[2023-08-01 13:00] VITALS: BP 138/65; PULSE 48
[2023-08-01 13:15] VITALS: BP 164/76; PULSE 47
[2023-08-01 13:25] VITALS: BP 156/66; PULSE 46
--- NOTE | 2023-08-01 13:39 | NUR ---
1258- PATIENT RETURNS TO [facility] [place] [facility] VIA CART. PT AWAKE AND ALERT. RESPIRATIONS UNLABORED. AMBULATED TO RECLINER CHAIR WITH 2:1 SBA. PT DENIES NAUSEA OR ABDOMINAL PAIN. HOOKED UP TO MONITOR AND VS OBTAINED. CALL LIGHT AT SIDE. plasma processor #[id number] USED TO SPEAK TO PATIENT. TWO FAMILY MEMBERS CAME TO ROOM AFTER PATIENT WAS SEATED IN CHAIR. 1305- PATIENT TOLERATING CRANBERRY JUICE AND MUFFIN WITHOUT NAUSEA OR DIFFICULTY SWALLOWING. 1312- DR. ROTHMNA IN ROOM SPEAKING WITH PATIENT. USED SAME HAZARDOUS WASTE TECHNICIAN. 1325- D/C INSTRUCTIONS REVIEWED WITH PATIENT. PT VERBALIZED UNDERSTANDING AND A COPY OF INSTRUCTIONS PROVIDED IN D/C FOLDER. USED SAME HAZARDOUS WASTE TECHNICIAN. 1332- PATIENT DRESSED WITH ASSISTANCE FROM FAMILY. 1339- PATIENT DISCHARGED FROM UNIT VIA W/C TO A PERSONAL VEHICLE. PT LEFT HOSPITAL IN STABLE CONDITION.
[2023-08-01 14:09] VITALS: BP 171/78; PULSE 49; TEMP 97.5
--- NOTE | 2023-08-01 14:13 | NUR ---
1053 Patient to bay 6 via wheel chair, breathin even and unlabored, on 2 L O2 via NC. Patient is alert and oriented, accompanied by his daughter. Patient and his daughter are Thai speaking. Voice used to provide Thai translation. History and consents obtained with the assistance of fire extinguisher repairer inspector #[id number], "Evangelista." Composite Layup Worker #[id number], "María." provided translation for the physical exam, and Dr. Teague's conversation with the patient and his daughter prior to EGD and colonoscopy, also conversation with anethesia provider. IV established, NS infusing via gravity at KVO. Warm blanket provided. Call light in reach.
== END 2023-08-01 13:39 | disposition home or self-care (01) ==
LOC: SDCO 10:18
DX: K29.30 Chronic superficial gastritis without bleeding (principal); D12.3 Benign neoplasm of transverse colon; K63.5 Polyp of colon; K44.9 Diaphragmatic hernia without obstruction or gangrene; R63.4 Abnormal weight loss; K59.00 Constipation, unspecified; K64.0 First degree hemorrhoids; Z85.038 Personal history of other malignant neoplasm of large intestine
CPT/HCPCS: J2704; J7030